=== PATIENT | male | born 1995 ===

== ENCOUNTER 2016-07-24 14:14 | Emergency (ER) | payer OTHER ==
[2016-07-24 14:55] VITALS: BP 147/56
--- NOTE | 2016-07-24 15:19 | UC ---
Skin Complaint HPI - HPI Summary HPI Summary: 20 year old year male complaining of left ankle complaint which began on Sunday. Sunday patient noticed pain located in the lateral left ankle, the next day he noticed significant swelling after flying home from [place]. Pain increases with repeated use, was severe when weight bearing on Sunday. Denies any recent or remote trauma, no hx of surgery or bone/joint disorder. Patient states the pain and swelling has been resolving over the past few days. - History of Current Complaint Chief Complaint: UCLowerExtremity Time Seen by Provider: 07/24/16 15:06 Stated Complaint: SWOLLEN ANKLE Hx Obtained From: Patient Onset/Duration: Gradual Onset - Developed gradually while on an airplane Onset Severity: Moderate Current Severity: Mild Location: Discrete - Left lateral ankle, Foot (Left) Aggravating: Touch Alleviating: Unknown Associated Signs & Symptoms: Positive: Negative - Allergy/Home Medications Allergies/Adverse Reactions: Allergies Allergy/AdvReac Type Severity Reaction Status Date / Time No Known Allergies Allergy Verified 07/24/16 14:55 Home Medications: Home Medications Ibuprofen TAB* [Advil TAB*] 200 mg PO PRN 07/24/16 [History] Review of Systems Constitutional: Negative Skin: Other - Left lateral ankle effusion Eyes: Negative ENT: Negative Respiratory: Negative Cardiovascular: Negative Gastrointestinal: Negative Genitourinary: Negative Neurovascular: Negative Musculoskeletal: Edema - Left lateral ankle Neurological: Negative Psychological: Negative All Other Systems Reviewed And Are Negative: Yes PMH/Surg Hx/FS Hx/Imm Hx Previously Healthy: Yes Endocrine History Of: Denies: Diabetes, Thyroid Disease, Hyperthyroidism, Hypothyroidism, Dyslipidemia Cardiovascular History Of: Denies: Cardiac Disorders, Hypertension, Pacemaker/ICD, Myocardial Infarction , Congestive Heart Failure, Atrial Fibrillation, Deep Vein Thrombosis, Bleeding Disorders Respiratory History Of: Denies: COPD, Asthma, Bronchitis, Pneumonia, Pulmonary Embolism GI/ History Of: Denies: Gall Bladder Disease, Kidney Stones, Renal Disease Neurological History Of: Denies: Seizures, Migraine Psychological History Of: Denies: Anxiety, Depression, Bipolar Disorder - Surgical History Surgical History: Yes Surgery Procedure, Year, and Place: WISDOM TEETH - Social History Alcohol Use: None Substance Use Type: None Smoking Status (MU): Never Smoked Tobacco Have You Smoked in the Last Year: No Physical Exam Triage Information Reviewed: Yes Appearance: Well-Appearing, No Pain Distress, Well-Nourished Vital Signs: Initial Vital Signs Temp 98.6 F 07/24/16 14:50 Pulse 61 07/24/16 14:50 Resp 16 07/24/16 14:50 BP 147/56 07/24/16 14:50 Pulse Ox 100 07/24/16 14:50 Vital Signs Reviewed: Yes Eye Exam: Normal Eyes: Positive: Conjunctiva Clear ENT Exam: Normal ENT: Positive: Normal ENT inspection, Hearing grossly normal, Pharynx normal, TMs normal Dental Exam: Normal Neck exam: Normal Neck: Positive: Supple, Nontender, No Lymphadenopathy Respiratory: Positive: Chest non-tender, Lungs clear, Normal breath sounds, No respiratory distress Cardiovascular: Positive: RRR, No Murmur, Pulses Normal Abdomen Description: Positive: Nontender, No Organomegaly, Soft Bowel Sounds: Positive: Present Musculoskeletal: Positive: Strength Intact, ROM Intact, Edema @ - Left lateral ankle extending into the top of the left foot Neurological: Positive: Alert Psychological Exam: Normal Skin: Positive: Other - Swelling located in the left lateral ankle. Patient has full ROM and strength. Slightly tender to touch. Course/Dx - Diagnoses Provider Diagnoses: Left ankle effusion. Overuse Injury Discharge - Discharge Plan Condition: Stable Disposition: HOME Patient Education Materials: Swollen Joint (ED) Referrals: [facility] EDIE Brewster [Medical Doctor] - If Needed Additional Instructions: If symptoms worsen or fail to continue to improve over the next five days seek further medical evaluation.
== END 2016-07-24 15:48 | disposition home or self-care (01) ==
LOC: UCEAST 14:14
DX: M25.473 Effusion, unspecified ankle (principal); M70.872 Other soft tissue disorders related to use, overuse and pressure, left ankle and foot; Y93.9 Activity, unspecified
CPT/HCPCS: 99201; G0463